=== PATIENT | male | born 1965 | race Caucasian/White ===

== ENCOUNTER → 2016-08-15 | Outpatient (CLI) | payer OTHER ==
[~2016-08-15] MED LIST: CYCLOBENZAPRINE5 M3 PO; Motrin,Rufen800 MG PO; OMEPRAZOLE40 MG PO; OMNICEF300 MG PO; SYNTHROID,LEVO75 MCG PO; Synthroid,Levo50 MCG PO; TRAMADOL HCL50 MG PO; ZOLOFT100 MG PO
--- NOTE | ~2016-08-15 | ST ---
[place], [place] EXERCISE STRESS TEST REPORT NAME: DARRIN BROWN UNIT #: [id number] ROOM: DOCTOR: MONICA LEE MD BIRTHDATE: [birth year] DOS: 08/15/2016 EXERCISE STRESS TEST INDICATIONS: Chest discomfort, preoperative assessment. PROCEDURE: The patient exercised on a full Rich protocol stress test for 8 minutes 15 seconds and achieved a maximum heart rate of 170, which represented 101% of his maximum predicted heart rate at a workload of 10 mets. He stopped because of fatigue and had no chest pain. The resting pulse of 71 hanna to 170 with exercise. The resting blood pressure of 116/78 hanna normally to 160/88. The resting electrocardiogram showed sinus rhythm. He did have occasional PACs at rest. PACs increased with exercise, but he did not develop any diagnostic ST or T-wave changes. One minute prior to completion of exercise protocol radionuclide was administered. IMPRESSION: 1. Good exercise capacity without chest pain or diagnostic electrocardiographic changes. 2. Radionuclide injected. Please see the separately reported exam for further details of the patient's stress test result. MONICA LEE MD CM:STRESS:EXERCISE STRESS TEST REPORT [id number] MONICA LEE MD
== END | disposition home or self-care (01) ==
LOC: CARD 00:42
DX: Z01.810 Encounter for preprocedural cardiovascular examination (principal); R07.9 Chest pain, unspecified

== ENCOUNTER → 2016-10-15 | Outpatient (CLI) | payer OTHER ==
--- NOTE | ~2016-10-15 | PF ---
[place], [place] PULMONARY FUNCTION TEST NAME: [id number] UNIT #: [id number] ROOM: DOCTOR: BHAVANA REID MD,ANABELLE BIRTHDATE: [birth year] DOS: 10/15/2016 The test was ordered by Cathie Wright, nurse practitioner. The patient's details were recorded as 51-year-old male, height of 66 inches, weight of 233 pounds, BMI of 37.4. The pulmonary function testing done for assessment of symptoms of shortness of breath and fatigue. There was no past tobacco use. The patient's spirometry, the FVC was recorded 3.02 liters, 74% predicted value, mildly decreased. The FEV1 was noted at 2.77 liters, 82% predicted value, as normal. Partial but significant improvement occurred post-FVC and FEV1 as 14% and 17% respectively. Flow volume was suggestive of reversible obstructive airway pattern. The patient's lung volumes, thoracic gas volume recorded 65%, residual volume 68%, total lung capacity of 81%. The patient's lung diffusion recorded 110% normal. The patient's airway resistance, passive conductance were noted normal with partial improvement occurred post bronchodilator test. FINAL IMPRESSION: The test was suggestive of reversible obstructive lung disease. ANABELLE BATEMAN MD CM:PFREPORT:PULMONARY FUNCTION TEST [id number] ANABELLE REID MD
== END ==
LOC: CP 12:28
DX: R06.02 Shortness of breath (principal); R53.83 Other fatigue

== ENCOUNTER 2016-11-16 00:03 | Emergency (ER) | payer OTHER ==
[~2016-11-16] VITALS: Ht 167.6 cm; Wt 108.0 kg
[2016-11-16] MEDS ORDERED: RANITIDINE HCL150 M1 PO (00:10)
[2016-11-16] MEDS ORDERED: DICLOFENAC SOD75 MG PO (00:10)
[2016-11-16] MEDS ORDERED: DOC-Q-LACE100 MG PO (00:11)
== END 2016-11-16 00:55 | disposition home or self-care (01) ==
LOC: ED 00:03
DX: L98.8 Other specified disorders of the skin and subcutaneous tissue (principal); M54.5 Low back pain; K21.9 Gastro-esophageal reflux disease without esophagitis; F32.9 Major depressive disorder, single episode, unspecified; E03.9 Hypothyroidism, unspecified; Z85.01 Personal history of malignant neoplasm of esophagus; Z79.899 Other long term (current) drug therapy

== ENCOUNTER 2016-11-29 01:30 | Emergency (ER) | payer OTHER ==
[~2016-11-29] VITALS: Ht 167.6 cm; Wt 104.3 kg
[~2016-11-29 01:30] MED LIST changes: +DICLOFENAC SOD75 MG PO; +DOC-Q-LACE100 MG PO; +RANITIDINE HCL150 M1 PO
[2016-11-29] MEDS ORDERED: Motrin,Rufen800 MG PO (02:39)
== END 2016-11-29 02:58 | disposition home or self-care (01) ==
LOC: ED 01:30
DX: S63.502A Unspecified sprain of left wrist, initial encounter (principal); S93.602A Unspecified sprain of left foot, initial encounter; F32.9 Major depressive disorder, single episode, unspecified; K21.9 Gastro-esophageal reflux disease without esophagitis; E03.9 Hypothyroidism, unspecified; M54.9 Dorsalgia, unspecified; G89.29 Other chronic pain; Z79.899 Other long term (current) drug therapy

== ENCOUNTER 2017-02-27 01:30 | Inpatient (IN) | payer OTHER ==
[~2017-02-27] VITALS: Ht 167.6 cm; Wt 108.5 kg
[2017-02-27] VITALS (7 sets, daily range): BP systolic 104–144; BP diastolic 56–99
[2017-02-27 01:48] LABS: BASO % 0.3 % (0.0-1.0); EOS # 0.4 10*3/uL (0.0-0.4); EOS % 7.5 % (1.0-4.0); HEMATOCRIT 43.5 % (42.0-52.0); HEMOGLOBIN 14.1 g/dl (14.0-18.0); LYMPH # 1.6 10*3/uL (1.3-4.4); LYMPH % 27.3 % (27.0-41.0); MEAN CELL VOLUME 92.4 fl (80.0-94.0); MEAN CORPUSCULAR HGB 29.9 pg (27.0-31.0); MEAN CORPUSCULAR HGB CONC 32.4 g/dl (33.0-37.0); MONO # 0.5 10*3/uL (0.1-1.0); MONO % 7.7 % (3.0-9.0); NEUT # 3.3 10*3/uL (2.3-7.9); PLATELET COUNT AUTOMATED 253 10*3/uL (130-400); RED BLOOD COUNT 4.71 10*6/uL (4.50-5.90); RED CELL DISTRI WIDTH 13.3 % (0-14.5); WHITE BLOOD COUNT 5.8 10*3/uL (4.8-10.8)
[2017-02-27 02:01] LABS: INTERNATIONAL NORM RATIO 0.9 (2.0-3.5); PROTHROMBIN TIME 9.6 SECONDS (9.0-12.4)
[2017-02-27 02:12] LABS: ALBUMIN 3.5 gm/dl (3.1-4.5); ALKALINE PHOSPHATASE 97 U/L (45-117); BILIRUBIN, TOTAL 0.2 mg/dl (0.2-1.0); BUN 22 mg/dl (7-24); CARBON DIOXIDE 25 mmol/L (21-32); CHLORIDE 106 mmol/L (98-107); EST GLOM FILT AFRICAN AMERICAN > 60 ml/min; GLUCOSE 114 mg/dL (65-99); MAGNESIUM 2.1 mg/dL (1.5-2.1); SGOT/AST 23 IU/L (3-35); SGPT/ALT 40 U/L (12-78); SODIUM 143 mmol/L (136-145); TOTAL PROTEIN 7.4 gm/dL (6.4-8.2)
[2017-02-27 02:14] LABS: TROPONIN I < 0.015 ng/ml (<0.045)
[2017-02-27] MEDS ORDERED: TRAMADOL HCL50 MG PO (04:36)
[2017-02-27] MEDS ORDERED: MIRTAZAPINE15 M2 PO (04:37)
[2017-02-27] MEDS ORDERED: ASPIRIN325 MG PO (04:39)
[2017-02-27] MEDS ORDERED: VENTOLIN,PR2 MG/5 ML INH (04:39)
[2017-02-27] MEDS ORDERED: CYCLOBENZAPRINE5 M3 PO (04:40)
[2017-02-27 04:45] LABS: FREE T4 0.73 ng/dl (0.76-1.46)
[2017-02-27 04:49] LABS: HEMOGLOBIN A1c 6.1 % (4.8-5.6)
[2017-02-27 04:50] LABS: THYROID STIM HORMONE (HS) 6.12 uIU/ml (0.358-4.75)
[2017-02-27 09:18] LABS: FOLIC ACID 7.44 ng/mL (>5.38)
[2017-02-27 13:08] LABS: BUN 20 mg/dl (7-24); CARBON DIOXIDE 27 mmol/L (21-32); CHLORIDE 106 mmol/L (98-107); EST GLOM FILT AFRICAN AMERICAN > 60 ml/min; GLUCOSE 95 mg/dL (65-99); POTASSIUM 4.1 mmol/L (3.5-5.1); SODIUM 139 mmol/L (136-145)
== END 2017-02-27 15:37 | disposition home or self-care (01) | DRG 313 ==
LOC: ED 01:30 → 4E 03:08 → EDHOLD 03:08 → 4E 03:23
PROVIDERS: Emergency Medicine Emergency Medical Services; Internal Medicine; Internal Medicine Hospice and Palliative Medicine
DX: R07.89 Other chest pain (principal); N17.0 Acute kidney failure with tubular necrosis; F32.9 Major depressive disorder, single episode, unspecified; K21.9 Gastro-esophageal reflux disease without esophagitis; E03.9 Hypothyroidism, unspecified; E16.2 Hypoglycemia, unspecified; G89.29 Other chronic pain; R00.0 Tachycardia, unspecified; R73.9 Hyperglycemia, unspecified; M54.9 Dorsalgia, unspecified; Z87.81 Personal history of (healed) traumatic fracture; Z85.01 Personal history of malignant neoplasm of esophagus; Z83.3 Family history of diabetes mellitus; Z82.49 Family history of ischemic heart disease and other diseases of the circulatory system; Z79.82 Long term (current) use of aspirin; Z79.899 Other long term (current) drug therapy